=== PATIENT | male | born 1990 | race Caucasian/White ===

== ENCOUNTER 2019-10-21 11:24 | Emergency (ER) | payer OTHER ==
[~2019-10-21] VITALS: Ht 180.3 cm; Wt 108.9 kg
[2019-10-21] MEDS ORDERED: ZOLOFT50 M1 PO (11:39)
[2019-10-21 12:24] LABS: HEMOGLOBIN 15.9 gm/dL (14.0-18.0); MPV 7.4 fl. (7.2-11.1); WBC 6.8 thou/uL (4.0-11.0)
[2019-10-21 12:25] LABS: HEMATOCRIT 44.6 % (42.0-52.0); MCH 32.1 pg (26.0-34.0); MCHC 35.6 g/dL (28.0-37.0); MCV 90.1 fL (80.0-100.0); RBC 4.96 mil/uL (4.50-6.00); RDW-CV 12.6 % (10.5-14.5)
[2019-10-21 12:35] LABS: CALCIUM 8.5 mg/dL (8.5-10.1); CREATININE 0.9 mg/dL (0.6-1.3); POTASSIUM 4.3 mmol/L (3.5-5.1)
[2019-10-21 12:39] LABS: ALBUMIN 3.8 g/dL (3.4-5.0); TOTAL BILIRUBIN 0.3 mg/dL (<0.1-1.0)
[2019-10-21 12:45] LABS: ACETAMINOPHEN < 2 ug/mL (10-30); ALCOHOL < 10 mg/dL (<10); SALICYLATE 3.9 mg/dL (2.8-20.0)
[2019-10-21 12:59] LABS: URINE BILIRUBIN NEGATIVE (Negative); URINE BLOOD NEGATIVE (Negative); URINE CLARITY CLEAR; URINE COLOR YELLOW; URINE GLUCOSE-RANDOM NEGATIVE (Negative); URINE KETONES NEGATIVE (Negative); URINE LEUKOCYTES NEGATIVE (Negative); URINE NITRITE NEGATIVE (Negative); URINE PROTEIN NEGATIVE (Negative); URINE SPECIFIC GRAVITY 1.015 (1.005-1.030); URINE UROBILINOGEN 0.2 E.U./dl (0.2-1.0)
[2019-10-21 13:07] LABS: AMP/METHAMP Negative (Negative); BARBITURATES Negative (Negative); BENZODIAZEPINES Negative (Negative); COCAINE Negative (Negative); METHADONE Negative (Negative); OPIATES Negative (Negative); PCP Negative (Negative); THC POSITIVE (Negative)
[2019-10-22 12:40] VITALS: BP 141/88
== END 2019-10-22 12:40 ==
LOC: M.ERS 11:24
PROVIDERS: Personal Emergency Response Attendant
DX: R45.851 Suicidal ideations (principal); F32.9 Major depressive disorder, single episode, unspecified; Z20.828 Contact with and (suspected) exposure to other viral communicable diseases; Z79.899 Other long term (current) drug therapy

== ENCOUNTER 2019-11-20 15:55 | Emergency (ER) | payer OTHER, MEDICAID ==
[~2019-11-20] VITALS: Ht 180.3 cm; Wt 104.3 kg
[~2019-11-20 15:55] MED LIST: ZOLOFT50 M1 PO
[2019-11-20] MEDS ORDERED: ARIPIPRAZOLE10 MG PO (16:08)
[2019-11-20] MEDS ORDERED: REMERON15 M2 PO (16:08)
[2019-11-20] MEDS ORDERED: VISTARIL 25 MG25 M1 PO (16:08)
[2019-11-20 16:27] LABS: RDW-CV 12.9 % (10.5-14.5); WBC 9.1 thou/uL (4.0-11.0)
[2019-11-20 16:29] LABS: ABSOLUTE BASOPHILS 0.1 thou/uL (0.0-0.2); ABSOLUTE EOSINOPHILS 0.4 thou/uL (0.0-0.7); ABSOLUTE LYMPHOCYTES 2.7 thou/uL (0.8-5.3); ABSOLUTE MONOCYTES 0.6 thou/uL (0.0-1.2); ABSOLUTE NEUTROPHILS 5.3 thou/uL (1.6-8.1); BASOPHILS 0.9 %; EOSINOPHILS 4.1 %; HEMOGLOBIN 16.8 gm/dL (14.0-18.0); LYMPHOCYTES 30.1 %; MCH 31.8 pg (26.0-34.0); MCHC 35.7 g/dL (28.0-37.0); MCV 89.1 fL (80.0-100.0); MONOCYTES 6.5 %; MPV 6.9 fl. (7.2-11.1); NUCLEATED RBCS 0 /100WBC; PLATELET COUNT* 278 thou/uL (150-400); POLYS 58.4 %; RBC 5.28 mil/uL (4.50-6.00)
[2019-11-20 16:38] LABS: CALCIUM 8.9 mg/dL (8.5-10.1); CREATININE 1.2 mg/dL (0.6-1.3)
[2019-11-20 16:43] LABS: TOTAL BILIRUBIN 0.4 mg/dL (<0.1-1.0); TOTAL PROTEIN 7.5 g/dL (6.4-8.2)
[2019-11-20] MEDS ORDERED: ATIVAN1 M1 PO (17:59)
[2019-11-20 18:39] VITALS: BP 124/80
--- NOTE | 2019-11-21 12:13 | EKG ---
[place] [id number] ELECTROCARDIOGRAM REPORT Name: JOSE CHOWDARY Room: [facility]#: [id number] Admission: 11/20/19 Attend Phys: Discharge: 11/20/19 Date of : 89 Date of Service: 11/20/19 1628 Report #: [id number] THIS REPORT FOR: //name// [facility] ED Test Date: 2019-11-20 Test Time: 16:28:45 Pat Name: JOSE CHOWDARY Department: Room: Gender: [employer] Operator: : 1990 Requested By: Don Cochran Order Number: [id number] MD: Dario Corbin Measurements Intervals [place] Rate: 100 P: 57 FL: 153 QRS: 43 QRSD: 87 T: 38 QT: 325 QTc: 420 Interpretive Statements Sinus tachycardia ST elev, probable normal early repol pattern Baseline wander in lead(s) V1,V3 No previous ECG available for comparison Electronically Signed On 11-21-2019 12:13:16 CDT by Dario Corbin [email or web address] <ELECTRONICALLY SIGNED> By: Dario Corbin MD, [facility] 11/21/19 1213 1628 1628 Dario Corbin MD, [facility] /EPI
== END 2019-11-20 18:42 | disposition home or self-care (01) ==
LOC: M.ERS 15:55
PROVIDERS: Emergency Medicine Emergency Medical Services
DX: F41.0 Panic disorder [episodic paroxysmal anxiety] (principal); F32.9 Major depressive disorder, single episode, unspecified